=== PATIENT | female | born 1980 | race Hispanic/Latino ===

== ENCOUNTER 2017-01-16 17:42 | Emergency (ER) | payer MEDICARE, MEDICAID ==
[2017-01-16 17:47] VITALS: BMI 25.0
[2017-01-16 17:49] VITALS: TEMP 98.2
[2017-01-16] MEDS ORDERED: Iohexol 240 (50 ml) PO ONE (19:06)
[2017-01-16] MEDS ORDERED: Sodium Chloride 0.9% 1,000 ML IV ONE (19:06)
[2017-01-16] MEDS ORDERED: Iohexol 240 (50 ml) ONE (19:13)
[2017-01-16] MEDS ORDERED: Sodium Chloride 0.9% 1,000 ML ONE (19:14)
[2017-01-16] MEDS ORDERED: Iohexol 350mg/ml 100 ML ONE (19:17)
--- NOTE | 2017-01-16 19:19 | C.PDOC ---
History Of Present Illness A 36 y/o female with a Hx of kidney and pancreas transplant and diabetes, presents to the ER c/o not feeling well and body weakness for a week with associated abdominal and back pain for 2 days. Pt denies fever, chills, vomiting , diarrhea, vaginal bleeding or discharge, hematuria, dysuria, or any other complaints. Time Seen by Provider: 01/16/17 19:10 Chief Complaint (Nursing): Abdominal Pain History Per: Patient History/Exam Limitations: no limitations Onset/Duration Of Symptoms: Days Current Symptoms Are (Timing): Still Present Severity: Mild Location Of Pain/Discomfort: Other (Lower abdominal and lower back) Quality Of Discomfort: "Pain" Associated Symptoms: Nausea. denies: Fever, Chills, Vomiting, Diarrhea Recent travel outside of the [place]: No Additional History Per: Patient Abnormal Vaginal Bleeding: No Past Medical History Reviewed: Historical Data, Nursing Documentation, Vital Signs Vital Signs: Last Vital Signs Temp 98.2 F 01/16/17 17:49 Pulse 81 01/16/17 21:25 Resp 18 01/16/17 21:25 BP 169/74 H 01/16/17 21:25 Pulse Ox 98 01/16/17 21:25 - Medical History PMH: Diabetes - [facility] Procedures APPLICATION OF SPLINT (08/12/14) Family History: States: Unknown Family Hx - Social History Hx Tobacco Use: No Hx Alcohol Use: Yes Hx Substance Use: No - Immunization History Hx Tetanus Toxoid Vaccination: No Hx Influenza Vaccination: Yes Hx Pneumococcal Vaccination: Yes (2012) Review Of Systems Except As Marked, All Systems Reviewed And Found Negative. Constitutional: Positive for: Weakness, Malaise. Negative for: Fever, Chills Gastrointestinal: Positive for: Nausea, Abdominal Pain (Lower ). Negative for: Vomiting, Diarrhea Genitourinary: Negative for: Dysuria, Hematuria, Vaginal Discharge, Vaginal Bleeding Musculoskeletal: Positive for: Back Pain (Lower) Physical Exam - Physical Exam Appears: Non-toxic, No Acute Distress Skin: Warm, Dry Head: Atraumatic, Normacephalic Eye(s): bilateral: Normal Inspection Neck: Supple Cardiovascular: Rhythm Regular, No Murmur Respiratory: Normal Breath Sounds, No Accessory Muscle Use, No Rales, No Rhonchi , No Wheezing Gastrointestinal/Abdominal: Bowel Sounds (Passive bowel movement), Soft, Tenderness (LLQ), No Guarding, No Rebound, Other (Transplanted kidney at the left LLQ. Slight erythematous to touch.) Back: Normal Inspection, No CVA Tenderness, No Vertebral Tenderness, No Paraspinal Tenderness Extremity: Normal ROM, No Pedal Edema, Capillary Refill (<2secs), No Deformity, No Swelling Extremity: Bilateral: Normal Color And Temperature, Normal ROM Neurological/Psych: Oriented x3, Normal Speech, Normal Cognition Gait: Steady ED Course And Treatment - Laboratory Results Result Diagrams: 01/16/17 19:21 01/16/17 19:21 O2 Sat by Pulse Oximetry: 100 (RA) Pulse Ox Interpretation: Normal Medical Decision Making Medical Decision Making: Impression: 36 y/o female c/o weakness, not feeling well with abdominal and back pain for a week and 2 days respectively. Plans: CT Abd/Pel, Blood labs, Omnipaque, Zofran, IV fluids, reassess Disposition Counseled Patient/Family Regarding: Diagnosis - Disposition Referrals: [facility] [Outside] Disposition: HOME/ ROUTINE Disposition Time: 22:12 Condition: STABLE Prescriptions: traMADol/Acetaminophen [Ultracet 325 MG-37.5 MG] 1 tab PO Q6 #14 tab Instructions: Abdominal Pain (ED) - POA Present On Arrival: None - Clinical Impression Clinical Impression: Abdominal pain - Scribe Statement The provider has reviewed the documentation as recorded by the Scribe Krystian isaac All medical record entries made by the Scribe were at my direction and personally dictated by me. I have reviewed the chart and agree that the record accurately reflects my personal performance of the history, physical exam, medical decision making, and the department course for this patient. I have also personally directed, reviewed, and agree with the discharge instructions and disposition.
[2017-01-16 19:24] LABS: BASO % 0.4 % (0.0-2.0); EOS # 0.1 K/uL (0.0-0.7); EOS % 0.6 % (0.0-4.0); HEMATOCRIT 34.3 % (34.0-47.0); LYMPH % 10.8 % (20.0-40.0); MEAN CELL VOLUME 90.8 fL (81.0-99.0); MEAN CORPUSCULAR HEMOGLOBIN 29.6 pg (27.0-31.0); MEAN CORPUSCULAR HGB CONC 32.6 g/dL (33.0-37.0); MEAN PLATELET VOLUME 8.1 fL (7.2-11.7); MONO # 0.6 K/uL (0.0-0.8); MONO % 6.7 % (0.0-10.0); RED CELL DISTRIBUTION WIDTH 13.3 % (11.5-14.5); WHITE BLOOD COUNT 9.3 K/uL (4.8-10.8)
[2017-01-16 19:34] LABS: CHLORIDE 106 mmol/L (98-107); SODIUM 137 mmol/L (132-148)
[2017-01-16 19:35] LABS: POTASSIUM 4.5 mmol/L (3.6-5.2)
[2017-01-16 19:35] LABS: RBC URINE 12 /hpf (0-3); URINE BACTERIA RARE (<OCC); URINE BILIRUBIN NEGATIVE (NEGATIVE); URINE BLOOD 3+ (NEGATIVE); URINE COLOR Yellow (YELLOW); URINE GLUCOSE (UA) NORMAL (Normal); URINE KETONE NEGATIVE (NEGATIVE); URINE LEUKOCYTE ESTERASE NEG Leu/uL (Negative); URINE PROTEIN NEGATIVE (NEGATIVE); URINE UROBILINOGEN NORMAL mg/dL (0.2-1.0); WBC URINE 3 /hpf (0-5)
[2017-01-16 19:37] LABS: ALKALINE PHOSPHATASE 74 U/L (38-126); ALT/SGPT 32 U/L (9-52); AST/SGOT 25 U/L (14-36); BILIRUBIN,TOTAL 0.4 mg/dL (0.2-1.3); BLOOD UREA NITROGEN 15 mg/dL (7-17); CARBON DIOXIDE 19 mmol/L (22-30); GFR AFRICAN-AMERICAN > 60; GLUCOSE,RANDOM 96 mg/dL (65-105); TOTAL PROTEIN 7.7 g/dL (6.3-8.3)
[2017-01-16 19:38] LABS: CALCIUM 9.1 mg/dl (8.6-10.4)
[2017-01-16 21:25] VITALS: RESP 18
[2017-01-16 22:26] VITALS: BP 165/92; PULSE 78; O2SAT 99
--- NOTE | 2017-01-17 11:32 | CT ---
PROCEDURE: CT Abdomen and Pelvis with contrast HISTORY: abd pain COMPARISON: None. TECHNIQUE: Contrast dose: Radiation dose: Total exam DLP = 426 mGy-cm. This CT exam was performed using one or more of the following dose reduction techniques: Automated exposure control, adjustment of the mA and/or kV according to patient size, and/or use of iterative reconstruction technique. FINDINGS: LOWER THORAX: Unremarkable. LIVER: Unremarkable. No gross lesion or ductal dilatation. GALLBLADDER AND BILE DUCTS: Unremarkable. PANCREAS: Unremarkable. No gross lesion or ductal dilatation. SPLEEN: Unremarkable. ADRENALS: Unremarkable. No mass. KIDNEYS AND URETERS: Bilateral shawnee renal atrophy. Left lower quadrant renal transplant. No hydronephrosis. No solid mass. VASCULATURE: Unremarkable. No aortic aneurysm. BOWEL: Unremarkable. No obstruction. No gross mural thickening. APPENDIX: Normal appendix. PERITONEUM: Unremarkable. No free fluid. No free air. LYMPH NODES: Unremarkable. No enlarged lymph nodes. BLADDER: Unremarkable. REPRODUCTIVE: Unremarkable. BONES: No acute fracture. OTHER FINDINGS: Small anterior abdominal wall hernia. IMPRESSION: No acute findings.
== END 2017-01-16 22:26 | disposition home or self-care (01) ==
LOC: C.ER 17:42
DX: R10.32 Left lower quadrant pain (principal)
CPT/HCPCS: 74177; 80053; 81001; 83690; 84703; 85025; 87086; 96374; 96375; 99285; J2270; J2405; J7040; Q9966; Q9967

== ENCOUNTER 2017-04-26 15:40 | Emergency (ER) | payer MEDICARE, MEDICAID ==
[2017-04-26 15:41] VITALS: BMI 25.0
[2017-04-26 15:55] VITALS: BP 111/71; PULSE 86; RESP 16; TEMP 98; O2SAT 99
--- NOTE | 2017-04-26 16:05 | C.PDOC ---
History Of Present Illness 36F c/o drainage from her catheter site she noticed upon waking this morning. the bandage had a small amount of blood but has not had any more drainage since she woke up. she is currently undergoing plasmapheresis for the last 2 weeks due to a kidney transplant that she says is being rejected. her last treatment was fri. she reports anemia due to this, says her count was around [address] told her they would not transfuse unless it was less than 6. she denies any other sx. Time Seen by Provider: 04/26/17 16:04 Chief Complaint (Nursing): Medical Clearance Past Medical History Vital Signs: Last Vital Signs Temp 98.0 F 04/26/17 15:47 Pulse 86 04/26/17 15:47 Resp 16 04/26/17 15:47 BP 111/71 04/26/17 15:47 Pulse Ox 99 04/26/17 17:22 - Medical History PMH: Anemia, Diabetes, HTN - [facility] Procedures APPLICATION OF SPLINT (08/12/14) Family History: States: Other Other Family History: nc - Social History Hx Tobacco Use: No Hx Alcohol Use: Yes Hx Substance Use: No - Immunization History Hx Tetanus Toxoid Vaccination: Yes Hx Influenza Vaccination: No Hx Pneumococcal Vaccination: Yes (2012) Review Of Systems Constitutional: Negative for: Fever, Chills Cardiovascular: Negative for: Chest Pain Respiratory: Negative for: Cough, Shortness of Breath Gastrointestinal: Negative for: Vomiting, Abdominal Pain Physical Exam - Physical Exam Appears: Well, Non-toxic, No Acute Distress Skin: Warm, Dry, Pale Head: Atraumatic Nose: No Epistaxis Oral Mucosa: Moist Chest: Other (catheter in place right chest wall- no active bleeding or drainage , no erythema or warmth. ) Cardiovascular: Rhythm Regular Respiratory: No Decreased Breath Sounds, No Accessory Muscle Use, No Rales, No Rhonchi, No Wheezing Gastrointestinal/Abdominal: Soft, No Tenderness Neurological/Psych: Oriented x3 ED Course And Treatment - Laboratory Results Result Diagrams: 04/26/17 16:43 04/26/17 16:43 O2 Sat by Pulse Oximetry: 99 Medical Decision Making Medical Decision Making: there was a small amount of dried blood on the bandage. the catheter appears intact without any leak. the bandage was changed here in the ED. pt comfortable w plan for f/u w surgeon who placed catheter. Disposition - Disposition Disposition: HOME/ ROUTINE Disposition Time: 17:21 Condition: GOOD Additional Instructions: Please follow up with the surgeon who placed your catheter. Return to the ER for any recurrent bleeding or for any other concerns. Forms: [facility] (Vincentian), General Discharge Instructions - Clinical Impression Clinical Impression: Hemorrhage from dialysis catheter
[2017-04-26 16:48] LABS: BASO % 0.4 % (0.0-2.0); EOS # 0.1 K/uL (0.0-0.7); EOS % 1.3 % (0.0-4.0); HEMATOCRIT 22.7 % (34.0-47.0); LYMPH # 0.2 K/uL (1.0-4.3); LYMPH % 2.9 % (20.0-40.0); MEAN CELL VOLUME 89.4 fL (81.0-99.0); MEAN CORPUSCULAR HEMOGLOBIN 29.9 pg (27.0-31.0); MEAN CORPUSCULAR HGB CONC 33.4 g/dL (33.0-37.0); MEAN PLATELET VOLUME 7.1 fL (7.2-11.7); MONO # 0.5 K/uL (0.0-0.8); MONO % 5.7 % (0.0-10.0); PLATELET COUNT 306 K/uL (130-400); RED CELL DISTRIBUTION WIDTH 14.9 % (11.5-14.5); WHITE BLOOD COUNT 8.1 K/uL (4.8-10.8)
[2017-04-26 16:57] LABS: ALB/GLOB RATIO 2.1 (1.0-2.1); BILIRUBIN,TOTAL 0.3 mg/dL (0.2-1.3); CALCIUM 8.9 mg/dl (8.6-10.4); POTASSIUM 5.6 mmol/L (3.6-5.2); TOTAL PROTEIN 5.3 g/dL (6.3-8.3)
[2017-04-26 18:09] LABS: EOSINOPHIL 1 % (0-4); NEUTROPHIL 90 % (50-75); TOTAL CELLS COUNTED 100
== END 2017-04-26 17:47 | disposition home or self-care (01) ==
LOC: C.ER 15:40
DX: T82.838A Hemorrhage due to vascular prosthetic devices, implants and grafts, initial encounter (principal)

== ENCOUNTER 2017-04-29 15:50 | Emergency (ER) | payer MEDICARE, MEDICAID ==
[2017-04-29 15:50] VITALS: BMI 25.0
--- NOTE | 2017-04-29 17:42 | C.PDOC ---
History Of Present Illness Pt woke up this morning and the dressing of her catheter was damp with a small amount of blood. Time Seen by Provider: 04/29/17 16:40 Chief Complaint (Nursing): Wound Check History Per: Patient Onset/Duration Of Symptoms: Hrs Current Symptoms Are (Timing): Still Present Location Of Injury: Right: Chest Quality Of Symptoms: denies: Painful, Swollen Severity: Mild Additional History Per: Prior Records Past Medical History Reviewed: Historical Data, Nursing Documentation, Vital Signs Vital Signs: Last Vital Signs Temp 98.3 F 04/29/17 16:02 Pulse 92 H 04/29/17 16:02 Resp 18 04/29/17 16:02 BP 175/96 H 04/29/17 16:02 Pulse Ox 98 04/29/17 16:02 - Medical History PMH: Anemia, Diabetes, HTN Other Surgeries: Kidney transplant - [facility] Procedures APPLICATION OF SPLINT (08/12/14) Family History: States: Unknown Family Hx - Social History Hx Tobacco Use: No Hx Alcohol Use: Yes Hx Substance Use: No - Immunization History Hx Tetanus Toxoid Vaccination: Yes Hx Influenza Vaccination: No Hx Pneumococcal Vaccination: Yes (2013) Review Of Systems Except As Marked, All Systems Reviewed And Found Negative. Constitutional: Negative for: Fever, Chills, Weakness Cardiovascular: Negative for: Chest Pain Respiratory: Negative for: Shortness of Breath Gastrointestinal: Negative for: Vomiting, Abdominal Pain Musculoskeletal: Negative for: Neck Pain, Back Pain Skin: Negative for: Rash Neurological: Negative for: Weakness, Numbness Physical Exam - Physical Exam Appears: Non-toxic, No Acute Distress Skin: Normal Color, Warm, Dry Head: Atraumatic, Normacephalic Eye(s): bilateral: Normal Inspection, PERRL, EOMI Neck: Normal ROM, Supple Chest: Other (Right chest catheter in place with no signs of infection. There was a small amount of dry blood on the dressing.) Cardiovascular: Rhythm Regular Respiratory: Normal Breath Sounds, No Accessory Muscle Use Gastrointestinal/Abdominal: Soft, No Tenderness Extremity: Normal ROM Neurological/Psych: Oriented x3, Normal Motor, Normal Sensation ED Course And Treatment O2 Sat by Pulse Oximetry: 98 Pulse Ox Interpretation: Normal Progress Note: Dressing was changed by the nurse. Reassessment Condition: Improved Disposition Counseled Patient/Family Regarding: Diagnosis, Need For Followup - Disposition Referrals: Channing Jasso DO [Staff Provider] - Disposition: HOME/ ROUTINE Disposition Time: 17:44 Condition: IMPROVED Additional Instructions: Follow up with your doctor. Return to the ER if you develop fever, redness, drainage, bleeding, worsening of symptoms or if you have any other concerns. Forms: [employer] [facility] (Belgian), General Discharge Instructions - Clinical Impression Clinical Impression: Dressing change, Port catheter in place
[2017-04-29 17:55] VITALS: BP 166/92; PULSE 82; RESP 17; TEMP 98.1; O2SAT 100
== END 2017-04-29 17:55 | disposition home or self-care (01) ==
LOC: C.ER 15:50
DX: Z48.00 Encounter for change or removal of nonsurgical wound dressing (principal); Z95.828 Presence of other vascular implants and grafts

== ENCOUNTER 2017-05-03 17:10 | Emergency (ER) | payer MEDICARE, MEDICAID ==
[2017-05-03 17:12] VITALS: BMI 25.0
[2017-05-03 17:33] VITALS: RESP 18
--- NOTE | 2017-05-03 18:54 | C.PDOC ---
History Of Present Illness Delonte Hua is a 36 year old female, with a past medical history of kidney and pancreas transplant, hypertension, anemia and diabetes, who presents to the emergency department for Port-a-Cath dressing change. Last plasmaphoresis last Fri. She denies any fever, pain, or discharge. No further medical complaints. PMD: Channing Jasso Time Seen by Provider: 05/03/17 17:58 Chief Complaint (Nursing): Medical Clearance History Per: Patient History/Exam Limitations: no limitations Onset/Duration Of Symptoms: Days (x3 weeks) Severity: Mild Past Medical History Reviewed: Historical Data, Nursing Documentation, Vital Signs Vital Signs: Last Vital Signs Temp 97.4 F L 05/03/17 19:04 Pulse 76 05/03/17 19:04 Resp 18 05/03/17 19:04 BP 166/94 H 05/03/17 19:04 Pulse Ox 99 05/03/17 22:13 - Medical History PMH: Anemia, Diabetes, HTN, End Stage Renal Disease Other Surgeries: kidney and pancreas transplant - [facility] Procedures APPLICATION OF SPLINT (08/12/14) Family History: States: Unknown Family Hx - Social History Hx Tobacco Use: No Hx Alcohol Use: Yes Hx Substance Use: No - Immunization History Hx Tetanus Toxoid Vaccination: Yes Hx Influenza Vaccination: No Hx Pneumococcal Vaccination: Yes (2012) Review Of Systems Except As Marked, All Systems Reviewed And Found Negative. Constitutional: Negative for: Fever, Other (no pain no discharge) Physical Exam - Physical Exam Appears: Well, Non-toxic, No Acute Distress Skin: Normal Color, Warm, Dry, Other (left chest dressing of Port-a-cath with small drop of blood, no evidence of infection) Head: Atraumatic, Normacephalic Eye(s): bilateral: Normal Inspection, PERRL, EOMI Cardiovascular: Rhythm Regular Respiratory: Normal Breath Sounds Gastrointestinal/Abdominal: Normal Exam Extremity: Normal ROM Neurological/Psych: Oriented x3, Normal Speech, Normal Cognition ED Course And Treatment O2 Sat by Pulse Oximetry: 99 (RA) Pulse Ox Interpretation: Normal Medical Decision Making Medical Decision Making: Initial Plan: -dressing was replaced Scribe Attestation The documentation for this encounter was entered by Quinn Pruitt acting as a scribe for Emma CARLSON All medical record entries made by the Scribe were at my direction and personally dictated by me. I have reviewed the chart and agree that the record accurately reflects my personal performance of the history, physical exam, medical decision making, and the department course for this patient. I have also personally directed, reviewed, and agree with the discharge instructions and disposition. Disposition Counseled Patient/Family Regarding: Diagnosis, Need For Followup - Disposition Referrals: Channing Jasso DO [Staff Provider] - Disposition: HOME/ ROUTINE Disposition Time: 18:48 Condition: STABLE Additional Instructions: FOLLOW UP WITH PMD FOR RE-EVALUATION ON FRIDAY. IF ANY CONCERNING SYMPTOMS DEVELOP RETURN TO ED. Forms: [employer] (Peruvian), General Discharge Instructions - Clinical Impression Clinical Impression: Medical assessment
[2017-05-03 19:05] VITALS: PULSE 76; TEMP 97.4
[2017-05-03 19:17] VITALS: BP 166/94
[2017-05-03 22:10] VITALS: O2SAT 99
== END 2017-05-03 19:00 | disposition home or self-care (01) ==
LOC: C.ER 17:10
DX: Z45.2 Encounter for adjustment and management of vascular access device (principal)

== ENCOUNTER 2017-05-05 15:14 | Emergency (ER) | payer MEDICARE, MEDICAID ==
[2017-05-05 15:14] VITALS: BMI 25.0
[2017-05-05 15:44] VITALS: O2SAT 99
--- NOTE | 2017-05-05 16:21 | C.PDOC ---
History Of Present Illness 36 y/o female with Hx of Anxiety presents to ED with complaints of discomfort to right upper chest. Patient has a mediport in the area of pain for chronic medical issues. Patient states pain developed yesterday and has been constant.Patient denies trauma, sob, cough, fever or any other complaints at this time. Time Seen by Provider: 05/05/17 16:03 Chief Complaint (Nursing): Chest Pain History Per: Patient History/Exam Limitations: no limitations Onset/Duration Of Symptoms: Days Current Symptoms Are (Timing): Still Present Quality: "Pain" Past Medical History Reviewed: Historical Data, Nursing Documentation, Vital Signs Vital Signs: Last Vital Signs Temp 98.1 F 05/05/17 16:35 Pulse 68 05/05/17 16:35 Resp 18 05/05/17 16:35 BP 174/96 H 05/05/17 16:35 Pulse Ox 99 05/05/17 16:35 - Medical History PMH: Anemia, Diabetes, HTN, End Stage Renal Disease Surgical History: No Surg Hx - [facility] Procedures APPLICATION OF SPLINT (08/12/14) Family History: States: No Known Family Hx - Social History Hx Tobacco Use: No Hx Alcohol Use: Yes Hx Substance Use: No - Immunization History Hx Tetanus Toxoid Vaccination: Yes Hx Influenza Vaccination: No Hx Pneumococcal Vaccination: Yes (2012) Review Of Systems Except As Marked, All Systems Reviewed And Found Negative. Constitutional: Negative for: Fever, Chills Cardiovascular: Positive for: Chest Pain Respiratory: Negative for: Cough, Shortness of Breath Gastrointestinal: Negative for: Nausea, Vomiting Musculoskeletal: Negative for: Back Pain Skin: Negative for: Rash Neurological: Negative for: Weakness, Numbness Physical Exam - Physical Exam Appears: Non-toxic, Other (Anxious) Skin: Normal Color, Warm, Dry, No Rash Head: Atraumatic, Normacephalic Eye(s): bilateral: Normal Inspection Oral Mucosa: Moist Neck: Normal ROM, Supple Chest: Symmetrical, Other (Mediport to right upper chest) Cardiovascular: Rhythm Regular, No Murmur Respiratory: Normal Breath Sounds, No Rales, No Rhonchi, No Wheezing Gastrointestinal/Abdominal: Soft, No Tenderness, No Guarding, No Rebound Neurological/Psych: Oriented x3, Normal Speech, Normal Motor, Normal Sensation ED Course And Treatment O2 Sat by Pulse Oximetry: 99 (RA) Pulse Ox Interpretation: Normal Medical Decision Making Medical Decision Making: properly positioned and operating L upper chest portacath, no interventions required anxieties allayed. Disposition Doctor Will See Patient In The: Office Counseled Patient/Family Regarding: Studies Performed, Diagnosis - Disposition Referrals: Channing Jasso DO [Staff Provider] - Disposition: HOME/ ROUTINE Disposition Time: 16:20 Condition: GOOD Additional Instructions: catheter appears normal Follow-up with your PMD as needed. Instructions: Peripherally Inserted Central Catheters and Midline Catheters ( GEN) Forms: [employer] (Tamazight) - Clinical Impression Clinical Impression: Central venous catheter in place - Scribe Statement The provider has reviewed the documentation as recorded by the Scribe Efrem Mayo All medical record entries made by the Scribe were at my direction and personally dictated by me. I have reviewed the chart and agree that the record accurately reflects my personal performance of the history, physical exam, medical decision making, and the department course for this patient. I have also personally directed, reviewed, and agree with the discharge instructions and disposition.
[2017-05-05 16:36] VITALS: BP 174/96; PULSE 68; RESP 18; TEMP 98.1
--- NOTE | 2017-05-06 14:47 | CARD ---
APPROVED REPORT EKG Measurement Heart [id number] <Conclusion> Normal sinus rhythm Normal ECG
== END 2017-05-05 16:35 | disposition home or self-care (01) ==
LOC: C.ER 15:14
DX: Z45.2 Encounter for adjustment and management of vascular access device (principal); I12.0 Hypertensive chronic kidney disease with stage 5 chronic kidney disease or end stage renal disease; E11.22 Type 2 diabetes mellitus with diabetic chronic kidney disease; N18.6 End stage renal disease

== ENCOUNTER 2017-06-10 11:12 | Emergency (ER) | payer MEDICARE, MEDICAID ==
[2017-06-10 11:12] VITALS: BMI 25.0
[2017-06-10 11:36] VITALS: RESP 18; TEMP 97.8
[2017-06-10] MEDS ORDERED: Sodium Chloride 0.9% 1,000 ML IV ONE (11:47)
--- NOTE | 2017-06-10 11:54 | C.PDOC ---
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 Patient states that her permacath was removed 06/03/17. Denies fever, abdominal pain, nausea, vomiting, urinary symptoms, or back pain. Time Seen by Provider: 06/10/17 11:38 Chief Complaint (Nursing): GI Problem History Per: Patient History/Exam Limitations: no limitations Onset/Duration Of Symptoms: Days (1 week) Current Symptoms Are (Timing): Still Present Recent travel outside of the [place]: No Additional History Per: Patient Past Medical History Reviewed: Historical Data, Nursing Documentation, Vital Signs Vital Signs: Last Vital Signs Temp 97.8 F 06/10/17 13:52 Pulse 82 06/10/17 13:52 Resp 18 06/10/17 13:52 BP 160/80 H 06/10/17 13:52 Pulse Ox 100 06/10/17 13:52 - Medical History PMH: Anemia, Diabetes, HTN, End Stage Renal Disease - [facility] Procedures APPLICATION OF SPLINT (08/12/14) Family History: States: Unknown Family Hx - Social History Hx Tobacco Use: No Hx Alcohol Use: Yes Hx Substance Use: No - Immunization History Hx Tetanus Toxoid Vaccination: Yes Hx Influenza Vaccination: Yes Hx Pneumococcal Vaccination: Yes (2013) Review Of Systems Except As Marked, All Systems Reviewed And Found Negative. Constitutional: Positive for: Chills, Weakness. Negative for: Fever Cardiovascular: Negative for: Chest Pain, Palpitations Respiratory: Negative for: Cough, Shortness of Breath Gastrointestinal: Positive for: Diarrhea. Negative for: Nausea, Vomiting, Abdominal Pain, Constipation, Melena, Hematochezia Genitourinary: Negative for: Dysuria, Frequency, Hematuria Musculoskeletal: Negative for: Back Pain Neurological: Negative for: Headache, Dizziness Physical Exam - Physical Exam Appears: Non-toxic, No Acute Distress Skin: Warm, Dry, Other (well healed scar to right upper chest, no erythema) Head: Atraumatic, Normacephalic Eye(s): bilateral: Normal Inspection Oral Mucosa: Moist Neck: Normal ROM, Supple Chest: Symmetrical, No Tenderness Cardiovascular: Rhythm Regular, No Murmur Respiratory: Normal Breath Sounds, No Rales, No Rhonchi, No Wheezing Gastrointestinal/Abdominal: Bowel Sounds (normal), Soft, No Tenderness, No Guarding, No Rebound Back: Normal Inspection, No CVA Tenderness Extremity: Normal ROM Neurological/Psych: Oriented x3, Normal Speech ED Course And Treatment - Laboratory Results Result Diagrams: 06/10/17 12:28 06/10/17 12:28 O2 Sat by Pulse Oximetry: 98 (RA) Pulse Ox Interpretation: Normal Medical Decision Making Medical Decision Making: Plan: * CXR * Blood work * Urinalysis, urine culture * Influenza AB * IV fluids * Reassess Progress note: Labs reviewed with no acute changes from prior visits or other findings. CXR shows no active disease. Patient remained well in no distress. She has no fever , abdomen remains soft and nontender. Discussed results with patient, and copy of report were provided. On re-examination, patient is resting comfortably in no acute distress. Patient reports improvement of symptoms. Patient feels comfortable going home and will be discharged. Patient given follow up instructions. Instructed to return to ER if symptoms worsen or new symptoms arise. Disposition Counseled Patient/Family Regarding: Studies Performed, Diagnosis, Need For Followup, Rx Given - Disposition Disposition: HOME/ ROUTINE Disposition Time: 13:23 Condition: GOOD Additional Instructions: Thank you for letting us take care of you today. Your provider was ALDO Broderick. You were treated for fatigue. The emergency medical care you received today was directed at your acute symptoms. If you were prescribed any medication, please fill it and take as directed. It may take several days for your symptoms to resolve. Return to the Emergency Department if your symptoms worsen, do not improve, or if you have any other problems. Please contact your doctor or call one of the physicians/clinics you have been referred to that are listed on the Patient Visit Information form that is included in your discharge packet. Bring any paperwork you were given at discharge with you along with any medications you are taking to your follow up visit. Our treatment cannot replace ongoing medical care by a primary care provider (PCP) outside of the emergency department. Thank you for allowing the [facility] team to be part of your care today. Prescriptions: Atropine/Diphenoxylate [Lonox 0.025 MG-2.5 MG] 1 tab PO PRN PRN #10 tab PRN Reason: Diarrhea Instructions: Viral Syndrome (ED), Fatigue (DC) Forms: [employer] (Polish) - POA Present On Arrival: None - Clinical Impression Clinical Impression: Fatigue, Viral illness, Diarrhea - PA / FASHION PHOTOGRAPHER / Resident Statement MD/DO has reviewed & agrees with the documentation as recorded. - Scribe Statement The provider has reviewed the documentation as recorded by the Scribe Ty Meyer All medical record entries made by the Melissaibe were at my direction and personally dictated by me. I have reviewed the chart and agree that the record accurately reflects my personal performance of the history, physical exam, medical decision making, and the department course for this patient. I have also personally directed, reviewed, and agree with the discharge instructions and disposition.
[2017-06-10 12:32] LABS: BASO # 0.1 K/uL (0.0-0.2); BASO % 1.3 % (0.0-2.0); EOS # 0.1 K/uL (0.0-0.7); EOS % 0.7 % (0.0-4.0); HEMATOCRIT 26.9 % (34.0-47.0); LYMPH # 0.1 K/uL (1.0-4.3); LYMPH % 1.6 % (20.0-40.0); MEAN CORPUSCULAR HEMOGLOBIN 31.3 pg (27.0-31.0); MEAN CORPUSCULAR HGB CONC 33.7 g/dL (33.0-37.0); MEAN PLATELET VOLUME 7.7 fL (7.2-11.7); MONO # 0.3 K/uL (0.0-0.8); MONO % 3.1 % (0.0-10.0); RED CELL DISTRIBUTION WIDTH 17.4 % (11.5-14.5); WHITE BLOOD COUNT 8.7 K/uL (4.8-10.8)
[2017-06-10 12:33] LABS: MEAN CELL VOLUME 92.8 fL (81.0-99.0); PLATELET COUNT 493 K/uL (130-400)
[2017-06-10 12:39] LABS: CHLORIDE 104 mmol/L (98-107); POTASSIUM 4.7 mmol/L (3.6-5.2); SODIUM 132 mmol/L (132-148)
[2017-06-10 12:41] LABS: BILIRUBIN,TOTAL 0.3 mg/dL (0.2-1.3); GFR AFRICAN-AMERICAN > 60
[2017-06-10 12:42] LABS: ALKALINE PHOSPHATASE 52 U/L (38-126); ALT/SGPT 30 U/L (9-52); AST/SGOT 17 U/L (14-36); BLOOD UREA NITROGEN 18 mg/dL (7-17); CALCIUM 9.1 mg/dl (8.6-10.4); CARBON DIOXIDE 19 mmol/L (22-30); GLUCOSE,RANDOM 96 mg/dL (65-105); TOTAL PROTEIN 7.3 g/dL (6.3-8.3)
[2017-06-10 12:47] LABS: RBC URINE 1 /hpf (0-3); URINE BACTERIA OCC (<OCC); URINE BILIRUBIN NEGATIVE (NEGATIVE); URINE BLOOD NEGATIVE (NEGATIVE); URINE COLOR Yellow (YELLOW); URINE GLUCOSE (UA) NORMAL (Normal); URINE KETONE NEGATIVE (NEGATIVE); URINE LEUKOCYTE ESTERASE NEG Leu/uL (Negative); URINE PROTEIN NEGATIVE (NEGATIVE); URINE UROBILINOGEN NORMAL mg/dL (0.2-1.0); WBC URINE 2 /hpf (0-5)
[2017-06-10 13:03] LABS: EOSINOPHIL 1 % (0-4); NEUTROPHIL 91 % (50-75); TOTAL CELLS COUNTED 100
[2017-06-10 13:06] LABS: LARGE PLATELETS PRESENT
--- NOTE | 2017-06-10 13:20 | RAD ---
HISTORY: chills, malaise COMPARISON: Chest x-ray performed 09/28/14 TECHNIQUE: Chest PA and lateral FINDINGS: Examination limited by habitus. LUNGS: No focal consolidation. Please note that chest x-ray has limited sensitivity for the detection of pulmonary masses. PLEURA: No significant pleural effusion identified. No definite pneumothorax . CARDIOVASCULAR: Heart size appears within normal limits. Atherosclerotic calcification of the aorta. OSSEOUS STRUCTURES: No acute osseous abnormality identified. VISUALIZED UPPER ABDOMEN: Unremarkable. OTHER FINDINGS: None. IMPRESSION: No focal consolidation, significant pleural effusion, or definite pneumothorax identified.
[2017-06-10 13:53] VITALS: BP 160/80; PULSE 82
[2017-06-10 16:52] VITALS: O2SAT 98
== END 2017-06-10 13:52 | disposition home or self-care (01) ==
LOC: C.ER 11:12
DX: R53.83 Other fatigue (principal); B34.9 Viral infection, unspecified; R19.7 Diarrhea, unspecified

== ENCOUNTER 2018-10-23 15:55 | Emergency (ER) | payer MEDICARE, MEDICAID | END 2018-10-23 18:37 | disposition home or self-care (01) | LOC: C.ER 15:55 ==